=== PATIENT | female | born 1975 | race Caucasian/White ===

== ENCOUNTER 2017-04-22 09:15 | Emergency (ER) | payer OTHER ==
[~2017-04-22] VITALS: Ht 175.3 cm; Wt 115.5 kg
[~2017-04-22 09:15] MED LIST: CIPR500T4 PO; FISH120014 PO; METHY10 PO; MOTR200T PO; SUDA120T3 PO; VITA-83 PO
[2017-04-22 09:19] VITALS: BP 131/72; PULSE 90; RESP 20; TEMP 99.1; O2SAT 97
[2017-04-22] MEDS ORDERED: RITA20TA PO (09:29)
[2017-04-22] MEDS ORDERED: ONCETAB7 (09:29)
[2017-04-22] MEDS ORDERED: FIBE625T10 PO (09:29)
[2017-04-22] MEDS ORDERED: VITA100018 PO (09:29)
[2017-04-22] MEDS ORDERED: OMEP20TA PO (09:29)
[2017-04-22] MEDS ORDERED: MONT10TA4 PO (09:29)
[2017-04-22] MEDS ORDERED: LACTCAP8 PO (09:29)
--- NOTE | 2017-04-22 09:32 | PD ---
HPI Chief Complaint: Injury Time Seen by Provider: 09:23 Travel History International Travel<30 days: No Contact w/Intl Traveler<30days: No Traveled to known affect area: No History of Present Illness HPI WHILE WALKING DOWN HALLWAY YESTERDAY, APPARENTLY STEPPED ON SOMETHING AND TWISTED LEFT ANKLE, SINCE THEN SHARP PAIN, 8/10, WORSE WITH WEIGHT BEARING, NONRADIATING. PFSH Past Medical History Cancer: No Cardiovascular Problems: No Diabetes: No Endocrine: No Gastrointestinal Disorders: Yes (GASTROPARESIS, COLITIS) Glaucoma: No Genitourinary: No Hepatitis: No Hiatal Hernia: No Hypertension: No Immune Disorder: No Musculoskeletal: Yes (BACK) Respiratory: Yes Pneumonia: Yes Thyroid Disease: No PNEUMOCCOCAL Vaccine (Year): 2 ?: Not Menopausal: Yes : 1 Para: 1 Miscarriage: 0 : 0 Ovarian Cysts: Yes Past Surgical History Abdominal Surgery: Yes (TERRY) AICD: No Cardiac Surgery: No Cholecystectomy: Yes Ear Surgery: Yes (LASIK) Endocrine Surgery: No Eye Surgery: No Genitourinary Surgery: No Gynecologic Surgery: Yes (UTERINE ABLATION, D&C, IUD REMOVAL) Hysterectomy: Yes Joint Replacement: No Oral Surgery: No Pacemaker: No Thoracic Surgery: No Other Surgery: Yes Social History Alcohol Use: Yes (SOCIALLY WEEKENDS) Tobacco Use: Yes (when drinking etoh) Substance Use: No Allergies-Medications (Allergen,Severity, Reaction): Coded Allergies: Lortab (Unverified Adverse Reaction, Severe, NAUSEA VOMITING, 04/22/17) Reported Meds & Prescriptions Reported Meds & Active Scripts Active Reported Montelukast (Montelukast Sodium) 10 Mg Tab 10 Mg PO HS Omeprazole 20 Mg Tab 20 Mg PO DAILY Ritalin IR (Methylphenidate HCl) 20 Mg Tab 20 Mg PO DAILY Fiber (Calcium Polycarbophil) 625 Mg Tab 625 Mg PO PRN Once Daily (Multivitamin) 1 Each Tablet Probiotic (Lactobacillus Acidophilus) 1 Cap Cap 1 Cap PO TIDAC Vitamin D3 (Cholecalciferol) 1,000 Unit Tab 1,000 Units PO DAILY Review of Systems Except as stated in HPI: all other systems reviewed are Neg Musculoskeletal: Positive: Limited ROM, Pain Physical Exam Narrative GENERAL: SKIN: Warm and dry. HEAD: Atraumatic. Normocephalic. EYES: Pupils equal and round. No scleral icterus. No injection or drainage. ENT: No nasal bleeding or discharge. Mucous membranes pink and moist. NECK: Trachea midline. No JVD. CARDIOVASCULAR: Regular rate and rhythm. RESPIRATORY: No accessory muscle use. Clear to auscultation. Breath sounds equal bilaterally. GASTROINTESTINAL: Abdomen soft, non-tender, nondistended. Hepatic and splenic margins not palpable. MUSCULOSKELETAL: Extremities without clubbing, cyanosis, or edema. No obvious deformities. LEFT LATERAL ANKLE AND DORSUM OF FOOT MILD EDEMA AND TTP NEUROLOGICAL: Awake and alert. No obvious cranial nerve deficits. Motor grossly within normal limits. Five out of 5 muscle strength in the arms and legs. Normal speech. PSYCHIATRIC: Appropriate mood and affect; insight and judgment normal. Data Data Last Documented VS Vital Signs Date Time Temp Pulse Resp B/P Pulse Ox O2 Delivery O2 Flow Rate FiO2 04/22/17 09:19 99.1 90 20 131/72 97 Orders Foot, Complete ([id number]) (04/22/17 ) [facility] Medical Decision Making Medical Screen Exam Complete: Yes Emergency Medical Condition: Yes Medical Record Reviewed: Yes Differential Diagnosis SPRAIN V FX V DISLOCATION Narrative Course XRAY DID NOT SHOW ANY FX/DISLOCATION/SUBLUXATION ON EXAMINATION, PATIENT FOUND TO HAVE SPRAIN ONLY Diagnosis Primary Impression: LEFT FOOT/ANKLE SPRAIN Scripts Tramadol (Ultram)50 Mg Tab50 Mg PO Q4H PRN (PAIN) #28 TAB Prov:Evelio Huynh MD 04/22/17 Disposition: 01 DISCHARGE HOME Condition: Stable Evelio Huynh MD Apr 22, 2017 09:32
--- NOTE | 2017-04-22 10:32 | RADRPT ---
EXAM DATE/TIME: 04/22/2017 09:48 [facility] COMPARISON: No previous studies available for comparison. INDICATIONS : Left foot pain, twisted foot yesterday while walking MEDICAL HISTORY : None. SURGICAL HISTORY : None. ENCOUNTER: Initial ACUITY: 1 day PAIN SCORE: 10/10 LOCATION: Left foot FINDINGS: Three view examination of the left foot demonstrates no soft tissue swelling, dislocation, or fractur e. The tarsal bones appear intact. The interphalangeal and metatarsophalangeal joints are intact. The calcaneus is intact. Bony mineralization is normal. CONCLUSION: Negative for fracture or dislocation. Follow up in 7-10 days is suggested if symptoms persist. Basilio Wisdom MD FACR on April 22, 2017 at 10:30 Board Certified Radiologist. This report was verified electronically.
[2017-04-22] MEDS ORDERED: ULTR50TA5 PO (10:40)
== END 2017-04-22 11:11 | disposition home or self-care (01) ==
LOC: PHEFT 09:15
DX: S93.402A Sprain of unspecified ligament of left ankle, initial encounter (principal); X50.1XXA Overexertion from prolonged static or awkward postures, initial encounter; Y93.01 Activity, walking, marching and hiking
CPT/HCPCS: 73630; 99283